=== PATIENT | female | born 1985 | race Caucasian/White ===

== ENCOUNTER 2016-09-24 14:45 | Outpatient (CLI) | payer BC, MEDICAID ==
[~2016-09-24] VITALS: Ht 162.6 cm; Wt 73.2 kg
[~2016-09-24 14:45] MED LIST: DULCOLAX5 MG PO; IRON FERROUS S325 MG PO; MIRENA52 MG IU; MOTRIN 600600 MG/TAB PO; NO HOME MEDICATIONS; PERCOCET 325 MG1 TA2 PO; PRENATAL 1 VITA1 TAB PO; PRENATAL1 TA1 PO; ZOFRAN ODT8 MG PO
[2016-09-24 14:59] VITALS: BP 123/83; PULSE 88; TEMP 98.3
[2016-09-24 15:00] VITALS: BP 123/83; PULSE 88; TEMP 98.3
[2016-09-24 16:00] VITALS: BP 120/74; PULSE 71
[2016-09-24 16:55] VITALS: BP 118/69; PULSE 92
[2016-09-24 17:15] VITALS: BP 117/68; PULSE 67
== END 2016-09-24 17:30 | disposition home or self-care (01) ==
LOC: LDRO 14:45 → LDR 15:00 → LDRO 17:30
DX: O47.03 False labor before 37 completed weeks of gestation, third trimester (principal); Z3A.36 36 weeks gestation of pregnancy
CPT/HCPCS: OP

== ENCOUNTER 2016-09-28 21:01 | Outpatient (CLI) | payer BC, MEDICAID ==
[~2016-09-28] VITALS: Ht 162.6 cm; Wt 73.2 kg
[2016-09-28 21:30] VITALS: BP 134/88; PULSE 115
[2016-09-28 22:00] VITALS: BP 123/81; PULSE 88
[2016-09-28 22:30] VITALS: BP 116/75; PULSE 105; TEMP 97.8
[2016-09-28 22:37] VITALS: BP 134/88; PULSE 115; TEMP 97.8
[2016-09-28] MEDS ORDERED: PRENATAL (22:44)
== END 2016-09-28 23:30 | disposition home or self-care (01) ==
LOC: LDRO 21:01
DX: O47.1 False labor at or after 37 completed weeks of gestation (principal); Z3A.37 37 weeks gestation of pregnancy

== ENCOUNTER 2016-10-08 14:26 | Inpatient (IN) | payer BC, MEDICAID ==
[2016-10-08] VITALS (24 sets, daily range): BP systolic 117–138; BP diastolic 69–86; PULSE 61–100; TEMP 98.8–98.9
[~2016-10-08] VITALS: Ht 162.6 cm; Wt 73.8 kg
[~2016-10-08 14:26] MED LIST changes: +PRENATAL
[2016-10-08] MEDS ORDERED: TUMS500 MG PO (15:12)
[2016-10-08 15:41] LABS: BASO % 0.3 % (0.0-2.0); EOS # 0.1 (0.0-0.7); EOS % 1.8 % (0-4.0); GRAN # 5.9 (1.4-6.5); GRAN % 75.1 % (42.2-75.2); LYMPH # 1.2 (1.2-3.4); LYMPH % 15.5 % (20.0-51.0); MEAN CELL VOLUME 85 fl (80.0-100.0); MEAN CORPUSCULAR HGB CONC 34 g/dl (33.0-37.0); MEAN PLATELET VOLUME 9.9 fl (7.4-10.4); MONO # 0.5 (0.1-0.6); MONO % 6.8 % (1.7-9.3); PLATELET COUNT 261 K/mm3 (130-400); RED BLOOD COUNT 3.77 M/mm3 (4.10-5.30); WHITE BLOOD COUNT 7.8 K/mm3 (4.8-10.8)
[2016-10-08 15:42] LABS: HEMATOCRIT 32.1 % (37.0-47.0); HEMOGLOBIN 10.9 g/dl (12.5-16.0); MEAN CORPUSCULAR HEMOGLOBIN 29 pg (27.0-31.0)
[2016-10-09 01:30] VITALS: BP 112/66; PULSE 67; TEMP 98.3
[2016-10-09 04:25] VITALS: BP 119/68; PULSE 56; TEMP 97.8
[2016-10-09 06:58] VITALS: BP 107/51; PULSE 71; TEMP 97.8
[2016-10-09 15:57] VITALS: BP 104/62; PULSE 78; TEMP 98.1
[2016-10-09 21:00] VITALS: BP 127/84; PULSE 74; TEMP 98.1
[2016-10-10 08:00] VITALS: BP 119/81; PULSE 78; TEMP 97.9
[2016-10-10] MEDS ORDERED: IBU600 MG PO (08:56)
[2016-10-10] MEDS ORDERED: PERCOCET 325 MG1 TA2 PO (08:56)
== END 2016-10-10 13:30 | disposition home or self-care (01) | DRG 775 ==
LOC: OB 14:26 → LDR 14:30 → OB 14:30
PROVIDERS: Obstetrics & Gynecology
PROC: 10E0XZZ Delivery of Products of Conception, External Approach (ICD-10-PCS; principal; 2016-10-08)
PROC: 0KQM0ZZ Repair Perineum Muscle, Open Approach (ICD-10-PCS; 2016-10-08)
DX: O69.81X0 Labor and delivery complicated by cord around neck, without compression, not applicable or unspecified (principal); O70.1 Second degree perineal laceration during delivery; Z3A.38 38 weeks gestation of pregnancy; Z37.0 Single live birth
CPT/HCPCS: J2405; J2590; J2795; J7120